=== PATIENT | female | born 1990 | race Caucasian/White ===

== ENCOUNTER 2019-06-18 16:20 | Day surgery (SDC) | payer OTHER ==
[2019-06-18] MEDS ORDERED: hydrALAZINE 20 MG/ML VIAL SLOW IVP PRN (16:38)
[2019-06-18 16:56] LABS: #Basophils 0.1 thou/uL (0.0-0.2); #Eosinphils 0.1 thou/uL (0.0-0.7); #Lymphocytes 2.3 thou/uL (1.20-3.40); #Monocytes 0.8 thou/uL (0.11-0.59); #Neutrophils 7.9 thou/uL (1.40-6.50); %Basophils 0.5 % (0.0-1.0); %Eosinophils 0.9 % (0.0-10.0); %Lymphocytes 20.5 % (21.0-51.0); %Monocytes 6.9 % (0.0-10.0); %Neutrophils 71.2 % (42.0-75.0); Hemoglobin 11.6 g/dL (12.0-16.0); Mean Corpuscular HGB CONC 34.1 g/dL (32.0-36.0); Mean Corpuscular Hemoglobin 27.9 pg (27.0-31.0); Mean Corpuscular Volume 81.8 fL (78.0-98.0); Mean Platelet Volume 9.5 fL (7.4-10.4); Platelet Count 214 thou/uL (130-400); RBC Distribution Width 15.1 % (11.5-14.5); Red Blood Cell (RBC) Count 4.14 mill/uL (4.20-5.40)
[2019-06-18 17:14] VITALS: TEMP 97.8; BMI 44.6
[2019-06-18 17:24] LABS: ALT (SGPT) 9 U/L (8-55); AST (SGOT) 12 U/L (5-34); Albumin 2.9 g/dL (3.5-5.0); Alkaline Phosphatase 126 U/L (40-110); Anion Gap 11 mmol/L (10-20); BUN (Urea Nitrogen) 11 mg/dL (7.0-18.7); Bilirubin, Total Less than 0.2 mg/dL (0.2-1.2); Calc. Creatinine Clearance 239 mL/min (70-130); Calcium 9.2 mg/dL (7.8-10.44); Carbon Dioxide 23 mmol/L (22-29); Chloride 106 mmol/L (98-107); Estimated GFR-MDRD Greater than 90; Globulin 4.1 g/dL (2.4-3.5); Glucose 127 mg/dL (70-105); Potassium 4.3 mmol/L (3.5-5.1); Sodium 136 mmol/L (136-145)
[2019-06-18 19:58] LABS: Creatinine, Urine 73.77 mg/dL (47-110)
[2019-06-18 22:04] LABS: Amphetamine Not Detected (NotDetected); Barbiturates Screen Not Detected (NotDetected); Benzodiazepine Screen Not Detected (NotDetected); Cocaine Metabolite Screen Not Detected (NotDetected); Medtox Control Line Valid? VALID (VALID); Medtox Reader # READER 4; Methadone Not Detected (NotDetected); Methamphetamine Not Detected (NotDetected); Opiate Screen Not Detected (NotDetected); Oxycodone Screen Not Detected (NotDetected); Phencyclidine (PCP) Not Detected (NotDetected); THC/Cannabinoid Screen Not Detected (NotDetected); Tricyclic Screen Not Detected (NotDetected)
--- NOTE | 2019-06-19 07:57 | SS ---
DATE OF ADMISSION: 06/18/2019 DATE OF DISCHARGE: 06/18/2019 REGULAR PHYSICIAN: Pravin Garcia MD EVALUATING PHYSICIAN: Manoj Hansen MD CHIEF COMPLAINT: Elevated blood pressures in Dr. Garcia's office. HISTORY OF PRESENT ILLNESS: Ms. Koehler is a 29-year-old white, G8, P4, with an estimated date of confinement, 07/11/2019, who presents for evaluation of elevated blood pressures in Dr. Garcia's office. There, her blood pressures were reportedly 150s over 90s x2 and she had 2+ proteinuria on an office dipstick. She denies headache or visual changes. Of note is the fact that Dr. Garcia had not seen her in 5 weeks. PAST MEDICAL HISTORY: Includes 4 vaginal deliveries, all reportedly at term. She states that she had preeclampsia on 3 of those pregnancies. Postural orthostatic tachycardia per her report. PAST SURGICAL HISTORY: D and C, 6 ear surgeries, nose reconstruction, and tonsillectomy. CURRENT MEDICATIONS: vitamins and aspirin. ALLERGIES: INCLUDE PENICILLIN, WHICH GIVES HER NAUSEA AND VOMITING. CODEINE, WHICH GIVES HER ITCHING. SOCIAL HISTORY: She denies tobacco, alcohol, or drug use. FAMILY HISTORY: Unremarkable. REVIEW OF SYSTEMS: She denies nausea, vomiting, fever, chills, ruptured membranes, vaginal bleeding, headache, abdominal pain, or visual changes. PHYSICAL EXAMINATION: VITAL SIGNS: Blood pressures here are 130s to 140s over 80s. ABDOMEN: Soft and nontender, somewhat obese. PELVIC: Deferred. heart rate tracing is stable with no decelerations. No significant uterine contractions are seen. LABORATORY DATA: White count 11.0, hemoglobin and hematocrit 11.6 and 33.9. Platelets are 214,000. Chemistries show a creatinine of 0.64. Total bilirubin less than 0.2. AST and ALT are 12 and 9. Urine shows a protein of 31 and a urine creatinine of 7.3 giving a ratio of 0.42. ASSESSMENT: 1. 36 and 5/7-week intrauterine . 2. History of elevated pressures today and proteinuria consistent with preeclampsia. PLAN: I spoke with Dr. Garcia and it was his desire to admit her to give steroids with the potential to induce her after the course was complete. She was spoken to and this course of action was described to her. She is refusing any type of inpatient management at this time. She did sign out AMA, and Dr. Garcia is aware of this. Job ID: [id number]
== END 2019-06-18 20:38 | disposition left against medical advice (07) ==
LOC: L&D/OP 16:20
PROVIDERS: ATTEND Obstetrics & Gynecology
DX: O99.89 Other specified diseases and conditions complicating pregnancy, childbirth and the puerperium (principal); R03.0 Elevated blood-pressure reading, without diagnosis of hypertension; O12.13 Gestational proteinuria, third trimester; Z3A.36 36 weeks gestation of pregnancy; Z79.82 Long term (current) use of aspirin; Z88.0 Allergy status to penicillin; Z88.5 Allergy status to narcotic agent
CPT/HCPCS: 36415; 80053; 80306; 82570; 84156; 85025; 99282

== ENCOUNTER 2019-06-19 16:34 | Inpatient (IN) | payer OTHER ==
[2019-06-19 17:29] VITALS: BMI 48.9
[2019-06-19] MEDS ORDERED: Carboprost 250 MCG/ML AMP IM PRN (17:51)
[2019-06-19] MEDS ORDERED: hydrALAZINE 20 MG/ML VIAL SLOW IVP PRN (17:51)
[2019-06-19] MEDS ORDERED: Methylergonovine 0.2 MG/ML VIAL IM PRN (17:51)
[2019-06-19] MEDS ORDERED: Promethazine HCl 25 MG/ML VIAL IM PRN (17:51)
[2019-06-19] MEDS ORDERED: Diphenoxylate HCl/Atropine Tablet PO PRN ×2 (17:51)
[2019-06-19] MEDS ORDERED: Zolpidem Tartrate 5 MG TAB PO PRN (17:51)
[2019-06-19] MEDS ORDERED: Docusate 100 MG CAP PO PRN (17:51)
[2019-06-19] MEDS ORDERED: Acetaminophen 500 MG TAB PO PRN (17:51)
[2019-06-19] MEDS ORDERED: Lidocaine 1% (PF) 30 ML VIAL SC PRN (17:51)
[2019-06-19] MEDS ORDERED: Ondansetron PF 4 MG/2 ML Vial IVP PRN (17:51)
[2019-06-19] MEDS ORDERED: Ibuprofen 800 MG TAB PO PRN (17:51)
[2019-06-19] MEDS ORDERED: Misoprostol 200 MCG TAB PR PRN (17:51)
[2019-06-19] MEDS ORDERED: NS / Oxytocin 40 units/1000ml 1,000 ML IV PRN (17:51)
[2019-06-19] MEDS ORDERED: Betamet Acet/Betamet Na Ph 30 MG/5 ML VIAL IM SCH (18:00)
[2019-06-19] MEDS ORDERED: NS w/ Oxytocin 10 units 500 ML IV SCH ×2 (18:00)
[2019-06-19 18:57] LABS: Hemoglobin 11.2 g/dL (12.0-16.0); Mean Corpuscular Hemoglobin 28.3 pg (27.0-31.0); Mean Corpuscular Volume 83.1 fL (78.0-98.0); Mean Platelet Volume 9.1 fL (7.4-10.4); Platelet Count 217 thou/uL (130-400); RBC Distribution Width 15.2 % (11.5-14.5); Red Blood Cell (RBC) Count 3.95 mill/uL (4.20-5.40); White Blood Cell (WBC) Count 11.3 thou/uL (4.8-10.8)
[2019-06-19] MEDS: Vancomycin HCl 1 GM in Premix Bag 1 BAG IVPB SCH (19:13)
[2019-06-19 19:33] LABS: HBSAg Index 0.24 S/CO (0-0.99); Hep B Surf Ag Non-Reactive S/CO (NonReactive); Syphilis Antibody Nonreactive (Nonreactive); Syphilis Antibody Index 0.06 S/CO (<1.00 Non-Reactive)
--- NOTE | 2019-06-19 22:03 | PDOC.LDPN ---
Labor & Delivery Progress Note - Subjective Subjective: other - Objective General: resting Uterine fundus: non tender FHT: category 1 Plan: continue plan of care -: Patient returns to L&D this evening after leaving AMA despite having a diagnosis of preeclamsia. She states she went home, and developed a severe headache yesterday evening - for which she took a dose of Ibuprofen. I reviewed the risks of using Ibuprofen late late in the third trimester (premature closure of the ductus arteriosis), but the patient seems unmoved. This surprised me, as her last child had multiple cardiac defects and open cardiac surgery. She than began trying to change her story - stating she took tylenol, but the FOB stated -"no - it was Ibuprofen" as if to discourage her from lying to me. The patient was also offered BMZ for FLM, but declined steroids - stating she is almost 37 weeks. This seems like a reasonable response, as benefit is likely small, but ACOG does permit BMZ late in the 36th week. We have agreed to start misoprostol after midnight, once 37 weeks are officially achieved. anticipated tomorrow.
[2019-06-19] MEDS: Misoprostol 100 MCG TAB VAG SCH (23:59)
[2019-06-20] MEDS: Lactated Ringer's 1,000 ML IV SCH ×3 (03:08→14:24)
[2019-06-20] MEDS: Vancomycin HCl 1 GM in Premix Bag 1 BAG IVPB SCH (06:57)
[2019-06-20] MEDS: Misoprostol 100 MCG TAB VAG SCH ×3 (08:50→14:23)
[2019-06-20] MEDS ORDERED: FLU VACC QS2019-20(6MOS UP)/PF 60 MCG/0.5 ML SYRINGE IM ONE (09:00)
[2019-06-20] MEDS ORDERED: Zolpidem Tartrate 5 MG TAB PO PRN (13:35)
[2019-06-20] MEDS ORDERED: Promethazine HCl 25 MG/ML VIAL IM PRN (13:35)
[2019-06-20] MEDS ORDERED: Methylergonovine 0.2 MG/ML VIAL IM PRN (13:35)
[2019-06-20] MEDS ORDERED: Adacel (T-DAP) 0.5 ML SYRINGE IM ONE (13:35)
[2019-06-20] MEDS ORDERED: Preparation H Ointment 28 GM TUBE PR PRN (13:35)
[2019-06-20] MEDS ORDERED: diphenhydrAMINE 25 MG CAP PO PRN (13:35)
[2019-06-20] MEDS ORDERED: Lanolin Ointment 7 GM TUBE TOP PRN (13:35)
[2019-06-20] MEDS ORDERED: Varicella virus, LIVE 0.5 ML VIAL SC ONE (13:35)
[2019-06-20] MEDS ORDERED: NS / Oxytocin 40 units/1000ml 1,000 ML IV SCH (13:35)
[2019-06-20] MEDS ORDERED: Ondansetron PF 4 MG/2 ML Vial IVP PRN (13:35)
[2019-06-20] MEDS ORDERED: Misoprostol 200 MCG TAB VAG PRN (13:35)
[2019-06-20] MEDS ORDERED: Milk Of Magnesia 30 ML UDCUP PO PRN (13:35)
[2019-06-20] MEDS ORDERED: Measles/Mumps/Rubella 10 MCG/0.5 ML VIAL SC ONE (13:35)
[2019-06-20] MEDS ORDERED: hydrALAZINE 20 MG/ML VIAL SLOW IVP PRN (13:35)
[2019-06-20] MEDS ORDERED: Bisacodyl 10 MG SUPP PR PRN (13:35)
[2019-06-20] MEDS ORDERED: Docusate Calcium (SURFAK) 240 MG CAP PO SCH (14:00)
[2019-06-20] MEDS ORDERED: Prenatal Vitamin 1 TAB PO SCH (14:00)
[2019-06-20] MEDS: Ibuprofen 800 MG TAB PO SCH ×2 (14:22→19:34)
[2019-06-20] MEDS: Ferrous Sulfate 325 MG TAB PO SCH (17:14)
[2019-06-20] MEDS: Docusate Calcium (SURFAK) 240 MG CAP PO SCH (19:35)
[2019-06-21] MEDS: Ibuprofen 800 MG TAB PO SCH ×2 (05:37→14:13)
[2019-06-21 05:45] LABS: Hemoglobin 10.4 g/dL (12.0-16.0); Mean Corpuscular HGB CONC 32.9 g/dL (32.0-36.0); Mean Corpuscular Hemoglobin 27.3 pg (27.0-31.0); Mean Platelet Volume 9.4 fL (7.4-10.4); Platelet Count 179 thou/uL (130-400); RBC Distribution Width 15.2 % (11.5-14.5); Red Blood Cell (RBC) Count 3.81 mill/uL (4.20-5.40); White Blood Cell (WBC) Count 9.2 thou/uL (4.8-10.8)
[2019-06-21 07:52] VITALS: BP 132/83; TEMP 97.8
[2019-06-21] MEDS ORDERED: Prenatal Vitamin 1 TAB PO SCH (09:00)
[2019-06-21] MEDS: Ferrous Sulfate 325 MG TAB PO SCH (09:22)
[2019-06-21] MEDS: Docusate Calcium (SURFAK) 240 MG CAP PO SCH (09:23)
--- NOTE | 2019-06-21 12:00 | PDOC.PP ---
Post Progress Note Post Day #: 1 PO intake tolerated: yes Flatus: yes Ambulation: yes Vital Signs (12 hours) Temp Pulse Resp BP Pulse Ox 06/21/19 07:51 97.8 F 86 20 132/83 99 06/21/19 05:35 98.5 F 99 16 128/80 06/21/19 00:35 98.5 F 97 16 119/72 Weight Weight 285 lb - Physical Examination General: NAD Cardiovascular: no m/r/g, RRR Respiratory: clear to auscultation bilaterally, non-labored breathing Abdominal: + bowel sounds, lochia, no distention, appropriately TTP Extremities: negative homans (B) Neurological: no gross focal deficits Psychiatric: A&Ox3, normal affect Result Diagrams: 06/21/19 05:24 Additional Labs: Post Labs Blood Type O POSITIVE 06/19/19 18:56 Hep Bs Antigen Non-Reactive S/CO (NonReactive) 06/19/19 18:44
[2019-06-21] MEDS ORDERED: FLU VACC QS2019-20(6MOS UP)/PF 60 MCG/0.5 ML SYRINGE IM ONE (15:00)
--- NOTE | 2019-06-21 15:01 | DN ---
DATE OF PROCEDURE: 06/20/2019 TIME OF SERVICE: 1039 central standard time. PREOPERATIVE DIAGNOSIS: Intrauterine at 37 weeks with a diagnosis of preeclampsia. POSTOPERATIVE DIAGNOSIS: Intrauterine at 37 weeks with a diagnosis of preeclampsia. PROCEDURE: Induction resulting in a spontaneous vaginal delivery. FINDINGS: A viable male infant weighing 3267 g or 7 pounds 3 ounces. Apgars of 8 and 9. QUANTITATIVE BLOOD LOSS: 95 mL. COMPLICATIONS: None. PROCEDURE IN DETAIL: The patient presented to [facility] where she was admitted to the labor and delivery service. The patient underwent a normal and uneventful labor with normal cervical dilatation until she was found to be completely dilated. She was then allowed to push and was able to bring the baby down and delivered the baby in a vertex presentation without difficulties. Once the head delivered in occiput anterior position, the shoulders followed spontaneously along with the rest of the baby's body. Once out the baby's mouth and nose were bulb suctioned. The cord was clamped and cut and baby was handed to waiting attendants. Cord blood was collected. Gentle fundal massage was performed and the placenta delivered intact without problems. Hemostasis was assured. Quantitative blood loss was calculated. Inspection of the cervix, vaginal vault, and perineum did not reveal any lacerations needing suturing. Once again, hemostasis was within normal limits and the patient was allowed to recover in the labor and delivery room. Baby went to nursery. Job ID: [id number]
== END 2019-06-21 18:25 | disposition home or self-care (01) | DRG 807 ==
LOC: L&D/OP 16:34 → L&D 17:51 → 3SW 06-20 13:44
PROVIDERS: ADMIT Obstetrics & Gynecology; ATTEND Obstetrics & Gynecology
PROC: 10E0XZZ Delivery of Products of Conception, External Approach (ICD-10-PCS; principal; 2019-06-21)
DX: O14.94 Unspecified pre-eclampsia, complicating childbirth (principal); Z37.0 Single live birth; Z3A.37 37 weeks gestation of pregnancy
CPT/HCPCS: 36415; 85027; 86780; 86850; 86900; 86901; 87340; 90471; 90686; G0008; J2590; J3370